=== PATIENT | female | born 1980 | race Two or more races ===

== ENCOUNTER 2023-05-09 14:07 | Emergency (ER) | payer OTHER ==
[~2023-05-09] VITALS: Ht 165.1 cm; Wt 54.4 kg
[2023-05-09] MEDS ORDERED: ZOLOFT20 MG/1 ML PO (14:37)
[2023-05-09] MEDS ORDERED: CLONAZEPAM1 MG PO (14:37)
[2023-05-09] MEDS ORDERED: RESTORIL30 MG PO (14:37)
[2023-05-09] MEDS ORDERED: 0.9 % SODIUM CHLORIDE 500 ML IV SCH (16:45)
[2023-05-09] MEDS ORDERED: MORPHINE SULFATE 4 MG/ML CARTRIDGE IV ONE (16:45)
[2023-05-09 17:17] LABS: HEMATOCRIT 38.1 % (36.0-45.00); HEMOGLOBIN 13.1 g/dL (12.0-15.00); MEAN CELL VOLUME 88.1 fL (80.00-100.00); MEAN CORPUSCULAR HEMOGLOBIN 30.2 pg (27.00-32.0); MEAN CORPUSCULAR HGB CONC 34.2 g/dl (32.0-36.0); PLATELET COUNT 413 K/uL (150-450); RED BLOOD COUNT 4.33 M/uL (4.00-6.00)
[2023-05-09 17:46] LABS: INR 0.98; PROTHROMBIN TIME 10.3 SECONDS (9.0-11.5)
[2023-05-09 17:47] LABS: CALCIUM 9.1 mg/dL (8.5-10.1); CREATININE SERUM 0.86 mg/dL (0.55-1.02); GFR 72.36; POTASSIUM 3.68 mEq/L (3.5-5.1)
[2023-05-09 18:35] LABS: URINE APPEARANCE Clear; URINE BILIRRUBIN Negative (NEGATIVE); URINE BLOOD Large; URINE COLOR Yellow; URINE GLUCOSE Negative (NEGATIVE); URINE LEUKOCYTE Negative; URINE NITRATE Negative; URINE PROTEIN Negative (NEGATIVE); URINE UROBILINOGEN 0.2 E.U./dl
[2023-05-09 18:38] LABS: URINE BACTERIA 16.3 uL (0.0-1933); URINE RBC 442.5 uL (0.0-20.8)
[2023-05-09 18:43] LABS: URINE WBC 1.5 uL (0.0-23.2)
[2023-05-09] MEDS ORDERED: DOLOGESIC 500-1 EACH PO (20:01)
== END 2023-05-09 20:09 | disposition home or self-care (01) ==
LOC: ER 14:08
PROVIDERS: General Practice
DX: N93.8 Other specified abnormal uterine and vaginal bleeding (principal); Z91.040 Latex allergy status; Z88.8 Allergy status to other drugs, medicaments and biological substances; D25.9 Leiomyoma of uterus, unspecified